=== PATIENT | male | born 1990 | race Two or more races ===

== ENCOUNTER 2024-01-16 10:24 | Emergency (ER) | payer MEDICAID ==
[~2024-01-16] VITALS: Ht 167.6 cm; Wt 73.0 kg
[2024-01-16 10:27] VITALS: BP 172/93; PULSE 104; RESP 18; TEMP 99; O2SAT 99
[2024-01-16] MEDS ORDERED: SULF-261 PO (11:11)
[2024-01-16] MEDS ORDERED: CEPH-558 PO (11:11)
== END 2024-01-16 11:22 | disposition home or self-care (01) ==
LOC: EMS 10:24
DX: L02.31 Cutaneous abscess of buttock (principal)
CPT/HCPCS: 99283; Z7502